=== PATIENT | female | born 1940 | race Two or more races ===

== ENCOUNTER 2020-05-28 18:06 | Inpatient (IN) | payer OTHER, MEDICAID ==
[~2020-05-28] VITALS: Ht 165.1 cm; Wt 79.8 kg
[2020-05-28] MEDS ORDERED: SODIUM CHLORIDE 0.9% 1,000 ML IV ONE (21:00)
[2020-05-28 21:16] LABS: BASOPHILS % 0.3 % (0.0-2.0); EOSINOPHILS % 0.3 % (0.0-5.0); HEMATOCRIT. 42.5 % (36.0-48.0); LYMPHOCYTES % 8.9 % (20.0-50.0); MEAN CORPUSCULAR HEMOGLOBIN 30.5 pg (28.0-32.0); MEAN CORPUSCULAR VOLUME 86.7 fL (81.0-99.0); MEAN PLATELET VOLUME 10.5 fl (7.4-10.4); NEUTROPHILS % 85.5 % (40.0-76.0); PLATELET 168 x1000/uL (130-400); RED CELL DISTRIBUTION WIDTH 15.7 % (11.6-14.6)
[2020-05-28 21:18] LABS: CHLORIDE 121 mEq/L (98-107)
[2020-05-28 21:22] LABS: PROTHROMBIN TIME 11.2 sec (9.6-11.0)
[2020-05-28] MEDS ORDERED: KCL 10MEQ/50ML PREMIX 50 ML IV NR (22:00)
[2020-05-28 23:58] LABS: CLARITY URINE CLOUDY (CLEAR); COLOR URINE DK YELLOW (YELLOW); KETONES URINE TRACE (NEGATIVE); LEUKOCYTE ESTERASE URINE 2+ (NEGATIVE); NITRITE URINE NEGATIVE (NEGATIVE); OCCULT BLOOD URINE NEGATIVE (NEGATIVE); PROTEIN URINE TRACE (NEGATIVE); SPECIFIC GRAVITY URINE 1.019 (1.005-1.030)
[2020-05-29] VITALS (7 sets, daily range): BP systolic 104–148; BP diastolic 64–93
[2020-05-29] MEDS ORDERED: LISI10TA26 PO (01:41)
[2020-05-29] MEDS ORDERED: ASCO500C18 PO (01:41)
[2020-05-29] MEDS ORDERED: FURO40TA5 MT (01:41)
[2020-05-29] MEDS ORDERED: SENN-257 MT (01:41)
[2020-05-29] MEDS ORDERED: ATEN-42 PO (01:41)
[2020-05-29] MEDS ORDERED: MULT9LIQ6 PO (01:41)
[2020-05-29] MEDS ORDERED: DONE5TAB26 PO (01:41)
[2020-05-29] MEDS ORDERED: CHOL400D7 MT (01:41)
[2020-05-29] MEDS ORDERED: TOPUD PO (01:41)
[2020-05-29] MEDS ORDERED: LACT10SO7 MT (01:41)
[2020-05-29] MEDS ORDERED: MEMA5TAB42 MT (01:41)
[2020-05-29] MEDS ORDERED: ACETAMINOPHEN 650MG SUPP PR PRN (02:15)
[2020-05-29] MEDS ORDERED: MORPHINE SULFATE 2 MG/ML CPJ (NOT FOR IM USE) IV PRN (02:15)
[2020-05-29] MEDS ORDERED: DOCUSATE SODIUM 100MG CAPSULE PO PRN (02:15)
[2020-05-29] MEDS ORDERED: CLONIDINE 0.1MG TABLET PO PRN (02:15)
[2020-05-29] MEDS ORDERED: CEFTRIAXONE 1 G PREMIX 50 ML IV SCH (02:15)
[2020-05-29] MEDS ORDERED: ONDANSETRON HCL 4MG/2ML INJ IV PRN (02:15)
[2020-05-29 03:18] LABS: CHLORIDE 122 mEq/L (98-107)
[2020-05-29] MEDS ORDERED: DEXT 5% WATER + KCL 40MEQ/L 1,000 ML IV SCH (04:00)
[2020-05-29] MEDS ORDERED: POTASSIUM CHLORIDE INJ 40 MEQ in DEXT 5% WATER 250 ML IV NR (06:00)
[2020-05-29] MEDS: CEFTRIAXONE 1,000 MG in DEXTROSE 5% WATER 50 ML IV SCH (10:00)
[2020-05-29] MEDS: POTASSIUM CHLORIDE INJ 40 MEQ in DEXTROSE 5% WATER 1,000 ML IV SCH (10:00)
[2020-05-29] MEDS: ENOXAPARIN 60MG/0.6ML SYR SUBCUT SCH ×2 (10:01→22:03)
[2020-05-29] MEDS ORDERED: NA PHOS,M-B/NA PHOS,DI-BA ENEMA 118ML PR NR (13:45)
[2020-05-29] MEDS ORDERED: DEXTROSE 50% WATER 50ML SYRINGE IV PRN (13:45)
[2020-05-29 16:50] LABS: INR 1.1; PROTHROMBIN TIME 12.2 sec (9.6-11.0)
[2020-05-29] MEDS: INSULIN LISPRO 100 UNITS/ML SUBCUT SCH ×2 (17:50→21:00)
[2020-05-29] MEDS: BLOOD SUGAR DIAGNOSTIC STRIP TEST SCH ×2 (17:54→21:00)
[2020-05-29] MEDS: METOCLOPRAMIDE HCL 10MG/2ML VIAL IV SCH (18:02)
[2020-05-30 00:16] VITALS: BP 139/85
[2020-05-30 06:05] LABS: CHLORIDE 124 mEq/L (98-107)
[2020-05-30] MEDS: BLOOD SUGAR DIAGNOSTIC STRIP TEST SCH ×4 (06:10→21:41)
[2020-05-30] MEDS: POTASSIUM CHLORIDE INJ 40 MEQ in DEXTROSE 5% WATER 1,000 ML IV SCH ×3 (06:10→21:45)
[2020-05-30] MEDS: METOCLOPRAMIDE HCL 10MG/2ML VIAL IV SCH ×4 (06:10→18:32)
[2020-05-30 06:14] LABS: PHOSPHORUS 2.4 mg/dL (2.5-4.9)
[2020-05-30 06:15] LABS: LDL CHOLESTEROL 225 mg/dL (5-100)
[2020-05-30 06:17] LABS: HDL CHOLESTEROL 41 mg/dL (40-59); T4 FREE 1.47 ng/dL (0.76-1.46)
[2020-05-30] MEDS: INSULIN LISPRO 100 UNITS/ML SUBCUT SCH (06:17)
[2020-05-30 06:27] LABS: BASOPHILS % 0.7 % (0.0-2.0); HEMATOCRIT. 37.3 % (36.0-48.0); HEMOGLOBIN. 12.5 g/dL (12.0-16.0); MEAN CORPUSCULAR HEMOGLOBIN 29.8 pg (28.0-32.0); MEAN CORPUSCULAR VOLUME 89.1 fL (81.0-99.0); MEAN PLATELET VOLUME 11.3 fl (7.4-10.4); MONOCYTES % 6.1 % (2.0-8.0); NEUTROPHILS % 77.2 % (40.0-76.0); PLATELET 142 x1000/uL (130-400); RED BLOOD CELL COUNT 4.18 mill/uL (4.2-5.4); RED CELL DISTRIBUTION WIDTH 16.4 % (11.6-14.6)
[2020-05-30 08:00] VITALS: BP 194/89
[2020-05-30] MEDS: ENOXAPARIN 80MG/0.8ML SYR SUBCUT SCH ×2 (10:33→21:45)
[2020-05-30] MEDS: CEFTRIAXONE 1,000 MG in DEXTROSE 5% WATER 50 ML IV SCH (10:33)
[2020-05-30] MEDS ORDERED: KCL 20MEQ/100ML PREMIX 100 ML IV SCH (11:00)
[2020-05-30] MEDS ORDERED: POTASSIUM PHOS,M-BASIC-D-BASIC 15 MMOL in DEXT 5% WATER 245 ML IV NR (12:00)
[2020-05-30 12:03] VITALS: BP 141/89
[2020-05-30 16:12] VITALS: BP 135/94
[2020-05-30 20:00] VITALS: BP 151/84
[2020-05-31] VITALS: BP 158/96
[2020-05-31] MEDS: METOCLOPRAMIDE HCL 10MG/2ML VIAL IV SCH ×3 (02:19→12:02)
[2020-05-31 04:00] VITALS: BP 140/82
[2020-05-31] MEDS: POTASSIUM CHLORIDE INJ 40 MEQ in DEXTROSE 5% WATER 1,000 ML IV SCH ×3 (05:46→23:26)
[2020-05-31] MEDS: BLOOD SUGAR DIAGNOSTIC STRIP TEST SCH ×4 (06:38→21:27)
[2020-05-31 06:46] LABS: BASOPHILS % 0.7 % (0.0-2.0); EOSINOPHILS % 3.8 % (0.0-5.0); HEMATOCRIT. 36.8 % (36.0-48.0); HEMOGLOBIN. 12.2 g/dL (12.0-16.0); LYMPHOCYTES % 20.6 % (20.0-50.0); MEAN CORPUSCULAR HEMOGLOBIN 29.2 pg (28.0-32.0); MEAN PLATELET VOLUME 11.9 fl (7.4-10.4); MONOCYTES % 6.2 % (2.0-8.0); NEUTROPHILS % 68.7 % (40.0-76.0); PLATELET 158 x1000/uL (130-400); RED BLOOD CELL COUNT 4.18 mill/uL (4.2-5.4)
[2020-05-31 07:00] LABS: CHLORIDE 124 mEq/L (98-107)
[2020-05-31 07:18] LABS: PHOSPHORUS 2.1 mg/dL (2.5-4.9)
[2020-05-31 08:00] VITALS: BP 132/83
[2020-05-31] MEDS: CEFTRIAXONE 1,000 MG in DEXTROSE 5% WATER 50 ML IV SCH (08:41)
[2020-05-31] MEDS: ENOXAPARIN 80MG/0.8ML SYR SUBCUT SCH ×2 (08:42→23:27)
[2020-05-31 12:00] VITALS: BP 149/89
[2020-05-31] MEDS ORDERED: POTASSIUM PHOS,M-BASIC-D-BASIC 20 MMOL in DEXT 5% WATER 243.3333 ML IV NR (12:00)
[2020-05-31 16:00] VITALS: BP 121/94
[2020-05-31 20:00] VITALS: BP 106/72
[2020-06-01] VITALS: BP 122/85
[2020-06-01 04:00] VITALS: BP 137/62
[2020-06-01] MEDS: POTASSIUM CHLORIDE INJ 40 MEQ in DEXTROSE 5% WATER 1,000 ML IV SCH (04:40)
[2020-06-01] MEDS: BLOOD SUGAR DIAGNOSTIC STRIP TEST SCH ×4 (07:47→21:03)
[2020-06-01 08:00] VITALS: BP 145/96
[2020-06-01] MEDS: CEFTRIAXONE 1,000 MG in DEXTROSE 5% WATER 50 ML IV SCH (08:27)
[2020-06-01] MEDS: ENOXAPARIN 80MG/0.8ML SYR SUBCUT SCH ×2 (08:28→21:05)
[2020-06-01] MEDS ORDERED: NA PHOS,M-B/NA PHOS,DI-BA ENEMA 118ML PR NR (10:00)
[2020-06-01 10:27] LABS: CHLORIDE 115 mEq/L (98-107)
[2020-06-01 12:00] VITALS: BP 140/92
[2020-06-01] MEDS: DEXT 5%/0.45% NACL 1000ML 1,000 ML IV SCH (12:44)
[2020-06-01 16:00] VITALS: BP 121/80
[2020-06-01 20:00] VITALS: BP 114/78
[2020-06-02] VITALS: BP 109/75
[2020-06-02 04:00] VITALS: BP 125/80
[2020-06-02] MEDS: BLOOD SUGAR DIAGNOSTIC STRIP TEST SCH ×4 (07:00→21:40)
[2020-06-02 08:00] VITALS: BP 140/79
[2020-06-02] MEDS: DEXT 5%/0.45% NACL 1000ML 1,000 ML IV SCH (09:50)
[2020-06-02] MEDS: CEFTRIAXONE 1,000 MG in DEXTROSE 5% WATER 50 ML IV SCH (09:50)
[2020-06-02] MEDS: ENOXAPARIN 80MG/0.8ML SYR SUBCUT SCH ×2 (09:54→21:40)
[2020-06-02 11:25] LABS: CHLORIDE 114 mEq/L (98-107)
[2020-06-02 11:29] LABS: HEMATOCRIT. 38.4 % (36.0-48.0); HEMOGLOBIN. 13.1 g/dL (12.0-16.0); MEAN CORPUSCULAR HEMOGLOBIN 29.8 pg (28.0-32.0); MEAN CORPUSCULAR VOLUME 87.5 fL (81.0-99.0); MEAN PLATELET VOLUME 11.3 fl (7.4-10.4); PLATELET 124 x1000/uL (130-400); RED BLOOD CELL COUNT 4.39 mill/uL (4.2-5.4); RED CELL DISTRIBUTION WIDTH 15.9 % (11.6-14.6)
[2020-06-02 12:00] VITALS: BP 146/83
[2020-06-02 14:21] LABS: PLATELET ESTIMATE SLIGHTLY DECREASED
[2020-06-02 16:00] VITALS: BP 127/84
[2020-06-02 20:00] VITALS: BP 129/88
[2020-06-03] VITALS (7 sets, daily range): BP systolic 119–162; BP diastolic 83–108
[2020-06-03] MEDS: DEXT 5%/0.45% NACL 1000ML 1,000 ML IV SCH (04:54)
[2020-06-03 05:50] LABS: CHLORIDE 113 mEq/L (98-107)
[2020-06-03 06:59] LABS: BASOPHILS % 0.6 % (0.0-2.0); EOSINOPHILS % 3.4 % (0.0-5.0); HEMATOCRIT. 38.5 % (36.0-48.0); HEMOGLOBIN. 13.1 g/dL (12.0-16.0); LYMPHOCYTES % 21.7 % (20.0-50.0); MEAN CORPUSCULAR HEMOGLOBIN 30.2 pg (28.0-32.0); MEAN CORPUSCULAR VOLUME 89.2 fL (81.0-99.0); MEAN PLATELET VOLUME 11.7 fl (7.4-10.4); NEUTROPHILS % 67.3 % (40.0-76.0); PLATELET 123 x1000/uL (130-400); RED BLOOD CELL COUNT 4.32 mill/uL (4.2-5.4); RED CELL DISTRIBUTION WIDTH 16.1 % (11.6-14.6)
[2020-06-03] MEDS ORDERED: KCL 10MEQ/50ML PREMIX 50 ML IV ONE (07:00)
[2020-06-03] MEDS: BLOOD SUGAR DIAGNOSTIC STRIP TEST SCH ×4 (07:32→20:51)
[2020-06-03] MEDS ORDERED: POTASSIUM CHLORIDE INJ 60 MEQ in DEXT 5% WATER 470 ML IV NR (09:00)
[2020-06-03] MEDS: ENOXAPARIN 80MG/0.8ML SYR SUBCUT SCH ×2 (09:33→20:52)
[2020-06-03] MEDS ORDERED: HYDRALAZINE 20MG/ML VIAL IV PRN (17:30)
[2020-06-03] MEDS ORDERED: HYDRALAZINE 20MG/ML VIAL IV SCH (20:00)
[2020-06-03] MEDS ORDERED: DEXTROSE 50% WATER 50ML SYRINGE IV PRN (20:15)
[2020-06-03] MEDS: INSULIN LISPRO 100 UNITS/ML SUBCUT SCH (20:51)
[2020-06-04] VITALS (7 sets, daily range): BP systolic 106–174; BP diastolic 66–114
[2020-06-04] MEDS: DEXT 5%/0.45% NACL 1000ML 1,000 ML IV SCH ×2 (00:45→10:26)
[2020-06-04 06:41] LABS: CHLORIDE 113 mEq/L (98-107)
[2020-06-04] MEDS: BLOOD SUGAR DIAGNOSTIC STRIP TEST SCH ×4 (06:45→21:00)
[2020-06-04] MEDS: INSULIN LISPRO 100 UNITS/ML SUBCUT SCH ×4 (06:45→21:00)
[2020-06-04 07:04] LABS: HEMATOCRIT. 38.3 % (36.0-48.0); HEMOGLOBIN. 12.8 g/dL (12.0-16.0); MEAN CORPUSCULAR HEMOGLOBIN 29.4 pg (28.0-32.0); MEAN PLATELET VOLUME 11.4 fl (7.4-10.4); PLATELET 148 x1000/uL (130-400); RED BLOOD CELL COUNT 4.36 mill/uL (4.2-5.4)
[2020-06-04] MEDS: ENOXAPARIN 80MG/0.8ML SYR SUBCUT SCH (08:54)
[2020-06-04] MEDS ORDERED: DILTIAZEM HCL 5MG/ML 5ML VIAL IV PRN (11:00)
[2020-06-04 14:42] LABS: PLATELET ESTIMATE NORMAL
[2020-06-04] MEDS: DIGOXIN 500MCG/2ML AMP IV SCH (17:57)
[2020-06-04] MEDS ORDERED: DIGOXIN 250MCG TABLET PO SCH (18:00)
[2020-06-04 19:29] LABS: INR 1.2
[2020-06-04] MEDS ORDERED: METOPROLOL TARTRATE 50MG TABLET PO SCH (21:00)
[2020-06-05 00:40] VITALS: BP 141/74
[2020-06-05 04:00] VITALS: BP 154/98
[2020-06-05 06:42] LABS: HEMATOCRIT. 35.3 % (36.0-48.0); MEAN CORPUSCULAR HEMOGLOBIN 29.8 pg (28.0-32.0); MEAN PLATELET VOLUME 11.6 fl (7.4-10.4); PLATELET 187 x1000/uL (130-400); RED BLOOD CELL COUNT 4.02 mill/uL (4.2-5.4)
[2020-06-05] MEDS: BLOOD SUGAR DIAGNOSTIC STRIP TEST SCH ×4 (06:42→21:20)
[2020-06-05] MEDS: INSULIN LISPRO 100 UNITS/ML SUBCUT SCH ×4 (07:24→21:00)
[2020-06-05 07:27] LABS: CHLORIDE 113 mEq/L (98-107)
[2020-06-05 08:00] VITALS: BP 142/91
[2020-06-05] MEDS ORDERED: KCL 20MEQ/100ML PREMIX 100 ML IV ONE (09:15)
[2020-06-05] MEDS ORDERED: POTASSIUM CHLORIDE INJ 60 MEQ in DEXT 5% WATER 500 ML IV NR (11:00)
[2020-06-05] MEDS: POTASSIUM CHLORIDE INJ 40 MEQ in DEXT 5% WATER 250 ML IV SCH ×2 (11:21→16:39)
[2020-06-05 12:00] VITALS: BP 122/97
[2020-06-05 14:51] LABS: PLATELET ESTIMATE NORMAL
[2020-06-05 16:00] VITALS: BP 162/98
[2020-06-05] MEDS: DEXT 5%/0.45% NACL 1000ML 1,000 ML IV SCH (16:42)
[2020-06-05] MEDS: DIGOXIN 500MCG/2ML AMP IV SCH (18:41)
[2020-06-05 20:00] VITALS: BP 127/78
[2020-06-06 00:18] LABS: CHLORIDE 116 mEq/L (98-107)
[2020-06-06 00:36] VITALS: BP 115/72
[2020-06-06 04:00] VITALS: BP 132/72
[2020-06-06] MEDS: BLOOD SUGAR DIAGNOSTIC STRIP TEST SCH ×4 (06:21→20:50)
[2020-06-06 06:30] LABS: CHLORIDE 115 mEq/L (98-107)
[2020-06-06 06:40] LABS: PHOSPHORUS 1.6 mg/dL (2.5-4.9)
[2020-06-06 07:11] LABS: HEMATOCRIT. 32.2 % (36.0-48.0); HEMOGLOBIN. 10.8 g/dL (12.0-16.0); MEAN CORPUSCULAR HEMOGLOBIN 29.8 pg (28.0-32.0); MEAN CORPUSCULAR VOLUME 88.6 fL (81.0-99.0); MEAN PLATELET VOLUME 11.6 fl (7.4-10.4); PLATELET 168 x1000/uL (130-400); RED BLOOD CELL COUNT 3.64 mill/uL (4.2-5.4); RED CELL DISTRIBUTION WIDTH 16.8 % (11.6-14.6)
[2020-06-06] MEDS: INSULIN LISPRO 100 UNITS/ML SUBCUT SCH ×4 (07:50→20:50)
[2020-06-06 08:00] VITALS: BP 151/70
[2020-06-06] MEDS ORDERED: POTASSIUM PHOS,M-BASIC-D-BASIC 20 MMOL in DEXT 5% WATER 243.3333 ML IV NR (11:30)
[2020-06-06 12:00] VITALS: BP 156/98
[2020-06-06] MEDS ORDERED: SORBITOL 70% SOLN 30ML NG NR (13:30)
[2020-06-06 15:23] LABS: PLATELET ESTIMATE NORMAL
[2020-06-06 16:00] VITALS: BP 157/84
[2020-06-06] MEDS: DIGOXIN 500MCG/2ML AMP IV SCH (17:36)
[2020-06-06 20:00] VITALS: BP 136/92
[2020-06-06] MEDS: ENOXAPARIN 80MG/0.8ML SYR SUBCUT SCH (20:50)
[2020-06-07] VITALS: BP 156/97
[2020-06-07 04:00] VITALS: BP 160/97
[2020-06-07 05:16] LABS: CHLORIDE 114 mEq/L (98-107)
[2020-06-07] MEDS: BLOOD SUGAR DIAGNOSTIC STRIP TEST SCH ×4 (06:09→21:04)
[2020-06-07 06:19] LABS: HEMATOCRIT. 31.3 % (36.0-48.0); HEMOGLOBIN. 10.5 g/dL (12.0-16.0); MEAN CORPUSCULAR HEMOGLOBIN 29.5 pg (28.0-32.0); MEAN CORPUSCULAR VOLUME 87.9 fL (81.0-99.0); MEAN PLATELET VOLUME 11.2 fl (7.4-10.4); PLATELET 183 x1000/uL (130-400); RED BLOOD CELL COUNT 3.57 mill/uL (4.2-5.4); RED CELL DISTRIBUTION WIDTH 16.5 % (11.6-14.6)
[2020-06-07] MEDS: INSULIN LISPRO 100 UNITS/ML SUBCUT SCH ×4 (07:50→21:00)
[2020-06-07 07:53] VITALS: BP 163/93
[2020-06-07] MEDS: ENOXAPARIN 80MG/0.8ML SYR SUBCUT SCH ×2 (08:14→21:04)
[2020-06-07] MEDS ORDERED: NA PHOS,M-B/NA PHOS,DI-BA ENEMA 118ML PR SCH (09:30)
[2020-06-07 11:24] VITALS: BP 151/88
[2020-06-07] MEDS: METOPROLOL TARTRATE 25MG TABLET PO SCH ×2 (13:02→21:03)
[2020-06-07 15:54] VITALS: BP 147/83
[2020-06-07 18:28] LABS: PLATELET ESTIMATE NORMAL
[2020-06-07] MEDS ORDERED: DEXT 5%/0.45% NACL 500ML 1,000 ML IV SCH (18:30)
[2020-06-07] MEDS ORDERED: DEXT 5%/0.45% NACL 1000ML 1,000 ML IV SCH (19:45)
[2020-06-07 20:00] VITALS: BP 155/86
[2020-06-08] VITALS: BP 156/91
[2020-06-08 04:00] VITALS: BP 136/93
[2020-06-08] MEDS: BLOOD SUGAR DIAGNOSTIC STRIP TEST SCH ×3 (06:15→17:20)
[2020-06-08] MEDS: INSULIN LISPRO 100 UNITS/ML SUBCUT SCH ×3 (07:50→17:33)
[2020-06-08 08:00] VITALS: BP 154/85
[2020-06-08] MEDS: METOPROLOL TARTRATE 25MG TABLET PO SCH (09:04)
[2020-06-08] MEDS: ENOXAPARIN 80MG/0.8ML SYR SUBCUT SCH (09:06)
[2020-06-08 10:13] VITALS: BP 145/88
[2020-06-08 11:58] VITALS: BP 141/74
[2020-06-08 16:00] VITALS: BP 145/76
[2020-06-08] MEDS ORDERED: RIVAROXABAN 20 MG TABLET PO SCH (17:00)
[2020-06-08] MEDS ORDERED: ATORVASTATIN CALCIUM 20MG TABLET PO SCH (21:00)
== END 2020-06-08 18:44 | DRG 388 ==
LOC: ER 18:06 → 6WST 21:48 → EDBEDREQ 22:23 → EDBEDREQTM 22:23 → ENRESERV 22:41
PROVIDERS: ADMIT Internal Medicine; ATTEND Internal Medicine
PROC: 0DH67UZ Insertion of Feeding Device into Stomach, Via Natural or Artificial Opening (ICD-10-PCS; principal; 2020-06-03)
DX: K56.7 Ileus, unspecified (principal); G93.41 Metabolic encephalopathy; K59.39 Other megacolon; I47.1 Supraventricular tachycardia; N39.0 Urinary tract infection, site not specified; I82.512 Chronic embolism and thrombosis of left femoral vein; I82.532 Chronic embolism and thrombosis of left popliteal vein; E87.0 Hyperosmolality and hypernatremia; R17 Unspecified jaundice; K56.609 Unspecified intestinal obstruction, unspecified as to partial versus complete obstruction; E87.6 Hypokalemia; F03.90 Unspecified dementia, unspecified severity, without behavioral disturbance, psychotic disturbance, mood disturbance, and anxiety; E88.09 Other disorders of plasma-protein metabolism, not elsewhere classified; I10 Essential (primary) hypertension; E83.39 Other disorders of phosphorus metabolism; D64.9 Anemia, unspecified; E78.00 Pure hypercholesterolemia, unspecified; K44.9 Diaphragmatic hernia without obstruction or gangrene; N20.0 Calculus of kidney; R13.10 Dysphagia, unspecified; R62.7 Adult failure to thrive; E83.41 Hypermagnesemia; M19.90 Unspecified osteoarthritis, unspecified site; E86.9 Volume depletion, unspecified; Z86.73 Personal history of transient ischemic attack (TIA), and cerebral infarction without residual deficits; Z74.01 Bed confinement status; Z91.041 Radiographic dye allergy status; Z68.29 Body mass index [BMI] 29.0-29.9, adult; Z20.822 Contact with and (suspected) exposure to COVID-19
CPT/HCPCS: 36415; 71045; 74018; 74176; 80048; 80053; 80061; 80162; 81003; 82248; 82962; 83036; 83735; 83930; 84100; 84439; 84443; 84484; 85025; 87077; 87186; 87426; 92610; 93005; 93306; 93970; 97162; 97166; 99285; C1893; J0360; J0696; J1160; J1650; J2765; J3480; J3490; J7030; J7060; J7070